=== PATIENT | female | born 2005 ===

== ENCOUNTER 2024-12-09 18:22 | Inpatient (IN) | payer MEDICAID, SELFPAY ==
[2024-12-09 18:27] VITALS: RESP 18; TEMP 37.2
[2024-12-09 18:43] VITALS: BMI 37.2
[2024-12-09 18:52] LABS: Basophils % (Auto) 0 % (0-2.5); Eosinophils # (Auto) 0.1 Thou/mm3 (0.0-0.5); Eosinophils % (Auto) 1 % (0-10); Hematocrit 34.9 % (36.0-46.0); Hemoglobin 12.4 g/dL (12.0-16.0); Immature Granulocytes % (Auto) 1 % (0-0); Immature Granulocytes Auto 0.05 Thou/mm3 (0.00-0.00); Lymphocytes # (Auto) 2.3 Thou/mm3 (1.0-4.8); Lymphocytes % (Auto) 21 % (10-50); Mean Corpuscular HGB Conc 35.5 g/dl (31.0-37.0); Mean Corpuscular Hemoglobin 30.8 pg (25.0-35.0); Mean Corpuscular Volume 87 fL (80-100); Monocytes # (Auto) 0.7 Thou/mm3 (0.0-0.8); Monocytes % (Auto) 6 % (0-12); Neutrophils # (Auto) 7.4 Thou/mm3 (1.8-7.7); Neutrophils % (Auto) 70 % (37-80); Nucleated Red Blood Cell % 0 /100 WBC (0); Platelet Count 209 Thou/mm3 (140-440); RDW Standard Deviation 41.3 fL (36.4-46.3); Red Blood Count 4.02 Miln/mm3 (4.00-5.20); White Blood Count 10.5 Thou/mm3 (3.6-11.0)
[2024-12-09 19:31] LABS: Syphilis Nonreactive (Nonreactive)
--- NOTE | 2024-12-09 19:31 | XR_ITS ---
Examination: Complete OB ultrasound greater than 14 weeks Date and time of exam: December 09, 2024 1940 hrs. Indications: Labor induction today, unknown weight Findings: Viable intrauterine single fetus with single amniotic sac presentation cephalic Cardiac motion 137 BPM Placenta posterior grade 3 Umbilical cord insertion 3 vessel seen Amniotic fluid index 15 cm spine maternal left Cervix 3.2 cm Ovaries obscured by bowel gas. Composite estimated gestational age based on BPD, head circumference, abdominal circumference, femur length is 40 weeks 1 day Estimated weight 3985 g Survey of intracranial anatomy, spinal anatomy, abdominal anatomy, four-chamber heart performed with no abnormalities identified. Impression: Viable intrauterine gestation cephalic presentation Estimated weight 3985 g.
[2024-12-09 21:18] VITALS: BP 124/79; PULSE 59
--- NOTE | 2024-12-09 21:23 | ESHP_ITS ---
Documentation for date of: 12/09/24 OB Labor/Induct. HPI History of Present Illness Chief complaint: induction for macrosomia : 1 Para: 0 Term pregnancies: 0 pregnancies: 0 Living children: 0 History of Abortions: Spontaneous and Elective: 0 History of Vaginal deliveries: 0 History of sections: No History of : No Date of last menstrual period: 03/07/24 KENDALL: 12/13/24 Gestational Age (weeks): 39 Gestational Age (days): 3 Gestational age based on last menstrual period: 39 Indication for induction: other ( macrosomia) History of present illness: This is a 19-year-old 1 para 0 admit to labor and delivery for induction of labor. Patient has been followed at [facility] for care. Her first visit was 8 weeks 2 days. Patient has a history of irregular menses. Her last period was February 24 and that put her due December 01, 2024. First ultrasound was May 05 patient was 8 weeks doing this change her due date to December 13, 2024 patient had a history of abnormal 1 hour GTT and her 3-hour was normal. She gained 80 pounds with the . Her last ultrasound over a month ago with maternal- medicine showed the baby was growing in the 98th percentile so patient was scheduled for induction. Patient is O+, antibody screen negative, RPR nonreactive, rubella immune, hepatitis B negative, hep C negative, HIV negative, as I mentioned her 1 hour GTT was high and her 3-hour GTT normal. Her GBS was negative. NIPT and carrier screens were all negative. Patient denies social habits. Denies surgery. Denies chronic illness. History of Present Dating criteria: LMP confirmed by 1st trimester US Adequate Care: Yes Ultrasounds: normal 1st trimester US and normal mid trimester US Obstetrical complications: none Medical complications: none Labs Labs: Negative: Hepatitis B, HIV, Chlamydia, Gonorrhea and Group Beta Strep Review of Systems Review of Systems Systems Reviewed: All systems reviewed, normal except as documented Past Medical History Surgical History SURGICAL: Negative Section Meds Home Medications and Allergies Home Medications ?Medication ?Instructions ?Recorded ?Confirmed ?Type ferrous sulfate 325 mg (65 mg 325 mg PO QDAY 12/09/24 12/09/24 History iron) tablet (FeroSul) vits no.126-ferrous fum 1 tab PO QDAY 5 12/09/24 History 28 mg iron-folic acid 800 mcg tablet (Classic ) Allergies Allergy/AdvReac Type Severity Reaction Status Date / Time No Known Allergies Allergy Verified 12/09/24 18:53 OB Exam Physical Exam Vital signs: Temp Pulse Resp BP 98.9 F 59 L 18 124/79 12/09/24 18:27 12/09/24 21:18 12/09/24 18:27 12/09/24 21:18 Narrative: Alert and oriented. Normal heart rate and rhythm. Lungs are clear no wheezes. Gravid abdomen. Gynecoid pelvis. Estimated weight is 8 and half pounds. Vertex by ultrasound. AL of 15. heart rate is category 1 with accelerations and moderate variability and patient has mild irregular contractions that she does not feel. Exam was soft cervix is anterior. 60% effaced. 1-2. Bag water intact. -2 station Routine Cardiovascular Exam Cardiovascular: Present RRR Routine Abdominal Exam Abdominal: Present soft Detailed Labor and Delivery Exam Dilation (cm): 1-2 Effacement (%): 60 Cervix position: anterior station: -2 Consistency: soft Presentation: Vertex Cervical ripeness score: 5 Membranes: intact Baseline heart rate: 125 monitor accelerations: 15x15 monitor decelerations: None keno terminal operator variability: Moderate (11-25) Contraction frequency (min): irregular Contraction duration (sec): 30 Tachysystole: No Contraction intensity: Mild OB Results Labs 12/09/24 18:30 Labs: Short CBC 12/09/24 Range/Units 18:30 WBC 10.5 (3.6-11.0) Thou/mm3 Hgb 12.4 (12.0-16.0) g/dL Hct 34.9 L (36.0-46.0) % Plt Count 209 (140-440) Thou/mm3 OB Assessment & Plan Assessment and Plan (1) Encounter for induction of labor: Status: Acute (2) Normal labor and delivery: Status: Acute Additional Plan Induction method: per misoprostol protocol Plan: induction, augmentation, anticipate NVD and consult MD velazquez
[2024-12-09] MEDS: MISOPROSTOL 50 mCg TABLET PO (21:52)
[2024-12-09 23:33] VITALS: BP 123/77; PULSE 57; TEMP 36.6
[2024-12-09 23:49] VITALS: PULSE 59; O2SAT 98
[2024-12-09 23:54] VITALS: PULSE 57; O2SAT 99
[2024-12-09 23:59] VITALS: PULSE 64; O2SAT 99
[2024-12-10] VITALS (71 sets, daily range): BP systolic 0–213; BP diastolic 0–95; PULSE 52–114; RESP 16–18; TEMP 36.7–37.3; O2SAT 91–100
[2024-12-10] MEDS: RINGERS LACTATED 1000 ML 1,000 ML 100 ML IV ×3 (01:48→13:38)
[2024-12-10] MEDS: MISOPROSTOL 50 mCg TABLET PO (02:13)
--- NOTE | 2024-12-10 08:45 | PD.LDPN ---
Documentation for date of: 12/10/24 OB Labor Progress Note Pain Control Pain control: tolerating well Pelvic Exam Dilation (cm): 4 Effacement (%): 80/post/soft station: -2 Amniotic membrane status: Bulging Contractions Monitor mode: External Contraction frequency: irregular Contraction phase: Resting Contraction intensity: Mild Status status: Category l Assessment and Plan Assessment: induction ongoing Plan OB labor note: begin Pitocin augmentation CNM Management MD Consulted (describe details below): Yes
[2024-12-10] MEDS: OXYTOCIN in NS 30 units 30 UNIT/500 ML BAG IV (09:23)
[2024-12-10 10:27] LABS: Amphetamine/Metham Scrn,Ur OB Negative (Negative); Benzoylecgonine Screen, Ur OB Negative (Negative); Opiate Screen,Urine OB Negative (Negative); THC Screen,Urine OB Negative (Negative)
[2024-12-10] MEDS: fentaNYL CIT INJ 50 mCg/ML AMP 2ML 100 MCG IV ×2 (11:09→12:45)
--- NOTE | 2024-12-10 14:26 | PD.LDPN ---
Documentation for date of: 12/10/24 OB Labor Progress Note Pelvic Exam Dilation (cm): C Effacement (%): C station: +2 Amniotic membrane status: Bulging Contractions Monitor mode: Internal Contraction frequency: q3min Contraction phase: Resting Contraction intensity: Strong Status status: Category l Assessment and Plan Comments: Called by RN to assess patient for recurrent FHR decels to 80's/90's with pushing efforts. I came immediately to bedside and assessed patient. IRENE Rivas present, pushing with patient. SCE C/C/+2, OA presentation. Continued FHR decels with every push, but moderate variability maintained. I had patient push with IRENE Rivas and I performed Ritgen maneuver, but fetus not yet descended far enough for it to be helpful. I donned new gloves. Patient pushing well, but would still be a while given size, so I called for vacuum. NICU nursing team already present. Bladder recently drained. I injected 1cc of 1% lidocaine into the midline of perineum and then cut a small midline episiotomy. Mighty Vac Soft Kyle Cup Vacuum device applied to flexion point of head. Maternal tissue excluded. With next patient pushing effort, vacuum device was pumped up to the green pressure zone. 1 pop-off, 2 pulls, total duration of instrument application 3 minutes. Once head was fully , IRENE Rivas took over the rest of the delivery. There was NO shoulder dystocia. had immediate spontaneous cry and was vigorous, apgars pending. No OASIS. Please see IRENE Rivas's note for futher details. Susana Paige MD
[2024-12-10] MEDS: OXYTOCIN in NS 20 units 20 UNIT/1,000 ML BAG 125 UNIT IV (14:29)
[2024-12-10] MEDS: OXYTOCIN INJ 10 UNIT/ML VIAL IM (14:30)
[2024-12-10] MEDS: MISOPROSTOL 200 mCg TABLET 800 MCG PR (14:30)
[2024-12-10] MEDS: MINERAL OIL 30 ML UDC TOP (14:42)
[2024-12-10] MEDS: BENZO/LANO/ALOE (Dermoplast) 60 GM CAN 1 SPRAY TOP (14:42)
[2024-12-10] MEDS: LIDOCAINE HCL 1% 20 ML VIAL INFL (14:44)
[2024-12-10] MEDS: IBUPROFEN TAB 400 MG TABLET 800 MG PO ×2 (14:44→23:13)
[2024-12-10] MEDS: TRANEXAMIC ACID 1,000 MG IVPB 1,000 MG/100 ML BAG 200 MG IV ×2 (15:04→16:40)
--- NOTE | 2024-12-10 15:19 | PD.LDDELS ---
Data (Bear) Data Hx Section: No : 1 Para: 0 Term: 0 : 0 : 0 Delivery Data (Bear) Labor Data Stimulated/Augmented: Yes Induction: Yes Method: Cytotec (pitocin to follow) ROM Date: 12/10/24 ROM Time: 13:23 Rupture Type: AROM Amniotic Fluid: Thin Meconium Delivery Data EDC: 12/13/24 EDC calculated by:: LMP/early US confirmation Labor Onset Stage 1 Date: 12/10/24 Labor Onset Stage 1 Time: 11:09 Labor Onset Stage 2 Date: 12/10/24 Labor Onset Stage 2 Time: 13:53 Delivery Date: 12/10/24 Delivery Time: 14:23 Gestational age (weeks): 39 Gestational age (days): 3 Placenta Delivery Date: 12/10/24 Placenta Delivery Time: 14:30 Delivered by: Rossana Rivas Delivery nurse: Doreen Dickerson Weight Reduction Specialist at delivery: Yes Support person(s) at delivery: father of baby Other staff at delivery: 2nd Nurse Other staff at delivery: 2nd Nurse Other staff at delivery: 2nd Nurse Other staff at delivery: Weight Reduction Specialist Other staff at delivery: Jazmine Licona Other staff at delivery: Mary Begum Other staff at delivery: [email or web address] Other staff at delivery: gheom Delivery Method Delivery: Vaginal Delivery Type: Vacuum Assisted Presentation: Vertex Position: CECILIA Anesthesia Type Primary Anesthesia: Local Delivery Room Medications Intrapartum Medications: Narcotics and Tocolytics Other Intrapartum Medications: No Post Delivery Medications: Antibiotics, Tocolytics and Cytotec Post Delivery Medications N/A: No Placenta Placenta Delivery: Spontaneous (placenta inspected, complete) Placenta Cultures Obtained: No Placenta Sent for Examination: No Cord Sample: Cord Blood Obtained Episiotomy Episiotomy: Midline (no lacerations) Perineal repair Sutures used for repair: 3.0 Vicryl (20 vicryl) EBL Estimated blood loss (ml): 450 Umbilical Cord Umbilical Vessels: 3 Nuchal Cord: x1 Body Cord: x1 Additional Procedures fhr in the 90 with pushing and slow recovery, pushing with encouragement, called Dr Paige to evaluate for vaccuum assist. applied x2, head delivered over MLE, baby delivered spontaneous by Clay Rivas cnm Blanch Data (Bear) Blanch Data Infant Gender: Male Infant Weight Grams: 4055 1 Minute Total: 8 5 Minute Total: 9
[2024-12-10] MEDS: ceFAZolin/D5W 2 GM IV 2 GM/100 ML BAG IV ×2 (15:48→22:16)
[2024-12-10] MEDS: ACETAMINOPHEN 325 MG TABLET 650 MG PO ×2 (16:40→20:23)
[2024-12-10] MEDS: DOCUSATE SOD 100 MG CAPSULE PO (20:23)
[2024-12-10 23:28] LABS: Basophils % (Auto) 0 % (0-2.5); Eosinophils % (Auto) 0 % (0-10); Hematocrit 27.3 % (36.0-46.0); Hemoglobin 9.6 g/dL (12.0-16.0); Immature Granulocytes % (Auto) 1 % (0-0); Immature Granulocytes Auto 0.11 Thou/mm3 (0.00-0.00); Lymphocytes # (Auto) 1.4 Thou/mm3 (1.0-4.8); Lymphocytes % (Auto) 7 % (10-50); Mean Corpuscular HGB Conc 35.2 g/dl (31.0-37.0); Mean Corpuscular Volume 88 fL (80-100); Monocytes # (Auto) 1.4 Thou/mm3 (0.0-0.8); Monocytes % (Auto) 7 % (0-12); Neutrophils # (Auto) 16.3 Thou/mm3 (1.8-7.7); Neutrophils % (Auto) 85 % (37-80); Nucleated Red Blood Cell % 0 /100 WBC (0); Platelet Count 163 Thou/mm3 (140-440); RDW Standard Deviation 42.4 fL (36.4-46.3); White Blood Count 19.2 Thou/mm3 (3.6-11.0)
[2024-12-11] MEDS: ACETAMINOPHEN 325 MG TABLET 650 MG PO (00:11)
[2024-12-11 00:14] VITALS: BP 135/70; PULSE 76; RESP 18; TEMP 36.9; O2SAT 97
[2024-12-11] MEDS: ceFAZolin/D5W 2 GM IV 2 GM/100 ML BAG IV (03:51)
[2024-12-11 03:52] VITALS: BP 112/72; PULSE 79; RESP 18; TEMP 36.8; O2SAT 99
[2024-12-11 08:00] VITALS: BP 118/69; PULSE 78; RESP 17; TEMP 36.9; O2SAT 97
[2024-12-11] MEDS: DOCUSATE SOD 100 MG CAPSULE PO (08:23)
[2024-12-11] MEDS: IBUPROFEN TAB 400 MG TABLET 800 MG PO (08:23)
--- NOTE | 2024-12-11 10:36 | PC.SS ---
SS conducted bedside contact with the patient to address nursing referral.? SS discussed with patient the basis of the referral. SS discussed self and role. ?SS asked for permission to speak in front of timber setter.? Patient agreed.? SS received referral indicating patient was positive for during care.? Patient tox report was negative. NB negative.? Patient confirmed she used THC during to help with her emotions.? Patient resides at home with her timber setter, FOB. FOB is involved. FOB is [facility]. Patient had baby boy, Derrick, via natural . NB born yesterday. ?This is patient?s first child. Patient received care with superintendent pipelines, Rossana Rivas RN. Patient states she was consistent with care. Patient denies any history of drug or alcohol abuse. Patient denies any history of domestic violence or mental illness. Patient states she plans on combo of bottle feeding and breast feeding. Patient has access to a car seat. Patient is not yet aligned with WIC, SNAP or TANF. Patient has access to appropriate supplies and equipment. director of social services provided resources to include:? Parenting Network, Warm Line and community numbers.? ?FOB will provide transportation upon discharge. No further intervention required at this time. Robotics Software Engineer will be available to address any further concerns. SS updated bedside nurse.
[2024-12-11 11:00] VITALS: BP 122/71; PULSE 83; RESP 15; TEMP 36.9; O2SAT 97
--- NOTE | 2024-12-11 11:17 | PD.LDPPPRG ---
Subjective Subjective Interval history: No complaints of pain. No dizziness. Bonding and breast-feeding feeding. Patient is very happy about the of her baby and her experience Exam Vital Signs Temp Pulse Resp BP Pulse Ox O2 Del Method 98.2 F 79 18 112/72 99 Room Air 12/11/24 03:52 12/11/24 03:52 12/11/24 03:52 12/11/24 03:52 12/11/24 03:52 12/11/24 03:52 Narrative Exam Vital signs stable afebrile. Breasts are soft. Fundus firm below the umbilicus. Perineum intact no swelling. Small lochia. Uterus well involuted. No lower extremity swelling. Negative Homans' sign. 2+ DTRs. Breasts are soft. Constitutional Constitutional: no acute distress Routine Respiratory Exam Respiratory: Present chest non-tender, lungs clear, normal breath sounds and no resp distress Routine Cardiovascular Exam Cardiovascular: Present RRR Routine Abdominal Exam Abdominal: Present soft and normoactive bowel sounds Routine Psychiatric Exam Psychiatric: Present normal affect and normal thought process Objective Labs 12/10/24 22:56 Labs: Laboratory Results - last 24 hr 12/10/24 22:56 WBC 19.2 H D RBC 3.10 L Hgb 9.6 L D Hct 27.3 L MCV 88 MCH 31.0 MCHC 35.2 RDW Std Deviation 42.4 Plt Count 163 D Neut % (Auto) 85 H Lymph % (Auto) [address] [place] % (Auto) 7 Eos % (Auto) 0 Baso % (Auto) 0 Neut # (Auto) 16.3 H Lymph # (Auto) 1.4 [place] # (Auto) 1.4 H Eos # (Auto) 0.0 Baso # (Auto) 0.0 Immature Gran # (Auto) 0.11 H Absolute Nucleated RBC 0.00 Immature Gran % 1 H Nucleated RBC % 0 Assessment & Plan Problem List (1) Encounter for induction of labor: Status: Acute (2) Normal labor and delivery: Status: Acute Assessment Comment Assessment comment: 24 hour post Plan Comment Plan Comment: Discharge home with baby today. Continue vitamins and iron. Discussed Tylenol or ibuprofen as needed for discomfort. Discussed episiotomy care. Sitz bath's with Epsom salt twice daily. Discussed danger signs and symptoms and signs symptoms of infection. Discussed ER precautions and parameters. Increase fluids and rest. Return in 3 weeks visit Time Spent With Patient Time: Total time spent is greater than 50% in coordination of care (as documented) at patient's floor/unit and/or counseling patient:
--- NOTE | 2024-12-11 11:20 | ESDS_ITS ---
DS: Providers Provider Date of admission: 12/09/24 18:22 Primary care physician: Physician No Primary/Family Admitting Provider: Rossana Rivas CNM Attending Provider on Admission: Rossana Rivas CNM Consults: 12/10/24 15:39 Referral Routine Comment: Attending Provider on DC: Rossana Rivas CNM Discharging Provider: Rossana Rivas CNM DS: Diagnosis Problem List Completed Was Problem List Reviewed/Reconciled?: Yes Summary/Hosp Course Brief History: This is a 19-year-old 1 para 0 admit to labor and delivery for induction of labor. Patient has been followed at [facility] for care. Her first visit was 8 weeks 2 days. Patient has a history of irregular menses. Her last period was February 24 and that put her due December 01, 2024. First ultrasound was May 05 patient was 8 weeks doing this change her due date to December 13, 2024 patient had a history of abnormal 1 hour GTT and her 3-hour was normal. She gained 80 pounds with the . Her last ultrasound over a month ago with maternal- medicine showed the baby was growing in the 98th percentile so patient was scheduled for induction. Patient is O+, antibody screen negative, RPR nonreactive, rubella immune, hepatitis B negative, hep C negative, HIV negative, as I mentioned her 1 hour GTT was high and her 3-hour GTT normal. Her GBS was negative. NIPT and carrier screens were all negative. Patient denies social habits. Denies surgery. Denies chronic illness. Peripartum Data Delivery Method: Operative Vaginal Delivery Episiotomy Description: Midline Laceration Description: no complications: none Time Spent with Patient Time attestation: Total time spent providing and/or coordinating discharge services: Exam Vital Signs Temp Pulse Resp BP Pulse Ox O2 Del Method 98.2 F 79 18 112/72 99 Room Air 12/11/24 03:52 12/11/24 03:52 12/11/24 03:52 12/11/24 03:52 12/11/24 03:52 12/11/24 03:52 Discharge Plan Plan Patient Disposition: HOME (Self Care) Patient condition on transfer: Stable Prescriptions/Referrals Prescriptions/Med Rec: No Action albuterol sulfate 90 mcg/actuation aerosol powdr breath activated 2 inh inhalation Q6H PRN (Reason: shortness of breath) Qty: 1 0RF ferrous sulfate [FeroSul] 325 mg (65 mg iron) tablet 325 mg PO QDAY Patient Comments: take 1 tablet by mouth twice a day Classic 28 mg iron- 800 mcg tablet 1 tab PO QDAY Patient Comments: take 1 tablet by mouth once daily promethazine 25 mg tablet 25 mg PO TID PRN (Reason: nausea and vomiting) Qty: 30 0RF Rx Instructions: Do not drive while taking Referrals: No Primary/Family,Physician [Primary Care Provider] - Patient/Caregiver Discharge Instructions Meds to Beds: No Discharge Activity: resume usual activities Print Language: Setswana Activity Restrictions/Additional Instructions: Discharge home with baby today. Continue vitamins and iron. Discussed Tylenol or ibuprofen for pain as needed. Discussed episiotomy care. Sitz bath's twice daily with Epsom salt. Increase fluids and rest. Discussed danger signs and signs symptoms of infection. Discussed ER precautions parameters. Return in 3 weeks visit Stand Alone Forms: Rosario Award Info., Patient Portal Info Letter Discharge Order Discharge Orders: Discharge (Routine); Ordered 12/11/24 Ordered By: Rossana Rivas Planned Discharge Date 12/11/24
== END 2024-12-11 16:35 | disposition home or self-care (01) | DRG 560 ==
LOC: S4SX 12-10 14:30 → S4NX 12-10 16:40
PROVIDERS: Admitting Provider Advanced Practice Midwife; Visit Provider Advanced Practice Midwife
DX: O36.63X0 Maternal care for excessive fetal growth, third trimester, not applicable or unspecified (principal); Z37.0 Single live birth; Z3A.39 39 weeks gestation of pregnancy; O69.81X0 Labor and delivery complicated by cord around neck, without compression, not applicable or unspecified; O69.82X0 Labor and delivery complicated by other cord entanglement, without compression, not applicable or unspecified; O77.0 Labor and delivery complicated by meconium in amniotic fluid; O76 Abnormality in fetal heart rate and rhythm complicating labor and delivery
CPT/HCPCS: 36415; 59409; 76805; 80307; 85025; 86780; 86850; 86900; 86901; 94762; J0689; J2590; J3010; J3490; J7120; S0191; A9270

== ENCOUNTER 2024-12-24 09:50 | Outpatient (AMB) | payer MEDICAID, SELFPAY ==
--- NOTE | 2024-12-24 10:00 | GYNCLNT_ITS ---
Vital Signs 12/24/24 10:01 Weight 92.079 kg Weight Measurement Method Standing Scale BP 126/86 H Blood Pressure Source Automatic Cuff Blood Pressure Location Left Upper Arm Position Sitting Respiration 18 Pulse 70 Pulse Source Monitor Temp 96.8 F Temp Source Oral Pulse Oximetry (%) 97 Oxygen Delivery Method Room Air Allergies/Home Meds Allergies & Medications Allergies No Known Allergies Allergy (Verified 12/24/24 10:02) Medication Reconciliation albuterol sulfate 90 mcg/actuation breath activated powder inhaler 2 inh inhalation Q6H PRN shortness of breath #1 ea 06/05/21 [Rx Confirmed 12/24/24] promethazine 25 mg tablet 25 mg PO TID PRN nausea and vomiting #30 tabs 12/05/22 [Rx Confirmed 12/24/24] ferrous sulfate 325 mg (65 mg iron) tablet (FeroSul) 325 mg PO QDAY 12/09/24 [History Confirmed 12/24/24] vits no.126-ferrous fum 28 mg iron-folic acid 800 mcg tablet (Classic ) 1 tab PO QDAY 12/09/24 [History Confirmed 12/24/24] Intake Visit Data Collection New Patient or Established: Established Patient (seen at [facility] within 3 years) Reason for Visit:: post visit Seen by Clinical Staff ONLY (RN/MA): No Laboratory Immunologist Required: No Do You Feel Safe at Home: Yes Authorities Contacted: N/A PCP or OBGYN visit in last 3 months: No Hx Now: No Are you currently on any form of Control: No Pain Present Currently: No Pain Scale Used: Rene-Zelaya/Numerical Pain scale:: 0 Smoking Status Smoking Status: Never smoker Enhanced Environmental Operator history Enhanced Environmental Operator History Menstrual regularity: regular Flow: normal Monthly: Yes Currently sexually active: No Questionnaires Covid-19 Vaccine Questionnaire Has patient been vacinated for Covid-19 Have you been vacinated for Covid-19: Yes PHQ-9 PHQ-2 Over the last 2 weeks, how often have you been bothered by any of the following problems? 1. Little interest or pleasure in doing things: not at all 2. Feeling down, depressed, or hopeless: not at all Total score: 0 PHQ-9 3. Trouble falling or staying asleep, or sleeping too much: Not at all 4. Feeling tired or having little energy: Not at all 5. Poor appetite or overeating: Not at all 6. Feeling bad about yourself - or that you are a failure or have let yourself or your family down: Not at all 7. Trouble concentrating on things, such as reading the newspaper or watching television: Not at all 8. Moving or speaking so slowly that other people could have noticed? - Or the opposite - being so fidgety or restless that you have been moving around a lot more than usual: not at all 9. Thoughts that you would be better off or of hurting yourself in some way: Not at all Total score: 0 If you checked off any problems, how difficult have these problems made it for you to do your work, take care of things at home, or get along with other people?: not difficult at all Source: Developed by Drs. Asad Lagunas, Sera Romano, Mp Márquez and colleagues, with an educational godfrey from [employer]. Depression screen completed yes Social History Living Situation History Lives With: Family Housing: House Tobacco History Smoking Status: Never smoker Second Hand Smoke Exposure: No Alcohol History Alcohol Intake: Never Domestic Abuse History Do You Feel Safe at Home: Yes Past Medical History Past Medical History Have you ever been diagnosed with any of the following: Cardiology Problems Congestive Heart Failure: No Respiratory Problems Chronic Obstructive Pulmonary Disease (COPD): No Asthma: Yes (self) Genital/Urinary Problems Renal Disease: No Reproductive Problems Breast Cancer: Yes (maternal grandma) Pelvic Inflammatory Disease: No Endocrine Problems Diabetes Mellitus Type 1: Yes (maternal and paternal grandparents) Diabetes Mellitus Type 2: No Blood Problems Anemia: Yes (self) Other Problems Blood Transfusions: No Blood Transfusion Reaction: No Anesthesia Reactions: No MRSA: No Clostridium Difficile: No Cancer: Yes (maternal and paternal grandparents) History of Present Illness HPI Narrative 19-year-old 1 para 1 for 2-week visit. Patient had a vaginal delivery about 06/2025. A baby boy weighing 8 pounds 15. Patient is breast and bottlefeeding. Reports that she is happy, no signs of depression. Patient has good support system at home. Father the baby is involved very. Unsure of control method. Patient has not resumed sexual intercourse yet. No complaints today. No complaints of episiotomy pain. Patient was induced for history of macrosomia. Tobacco Smoking Status: Never smoker Review of Systems Review of Systems Systems Reviewed: All systems reviewed, normal except as documented Exam Narrative Physical exam: Perineum intact. No lesions. Midline episiotomy well-approximated. No swelling. No signs of infection. No lochia. Abdomen soft. Nontender. Uterus well involuted. Negative Homans' sign. 2+ DTRs General Limitations: no limitations General Appearance: alert, in no apparent distress, comfortable, cooperative, healthy appearing, well developed and well groomed Head Head exam: atraumatic, normocephalic and normal inspection Chest Chest inspection: Present normal inspection and symmetric chest wall rise Resp Respiratory exam: Present normal lung sounds bilaterally Card Cardiovascular exam: Present regular rate, normal rhythm and normal heart sounds Abdominal Abdominal exam: Present soft and normal bowel sounds Rectal Rectal exam: Present normal inspection External exam: Present normal external exam and lacerations (midline episiotomy, 2nd, well approximated, no s/s of infection) Speculum exam: Present normal speculum exam Extremities Extremities exam: Present normal inspection (2+DTR, no varices) and full ROM Psych Psychiatric exam: Present normal affect and normal mood Assessment & Plan Diagnosis / Problem List (1) Routine Follow-Up: (2) Breast feeding status of mother: Status: Acute (3) Encounter for visit: Status: Acute Plan Discussed latching and breast-feeding position. Increase fluids. Discussed frequent feeds. Continue vitamins. Continues sitz bath's with Epsom salt twice a day for episiotomy care. Increase physical activity and rest. Discussed danger signs and symptoms and ER precautions. Return in 4 weeks control Office Procedures OB Clinic LOC & Office Proc's Nursing/Assessment Patient Status: Established Patient OB Clinic Nursing Assessment: BP Monitoring, Medication Reconciliation, Update PMH in EMR and Vital Signs OB Clinic Coordination of Care: Consent,records obtained, informed consent, Education Simp Pt/Fam, Results/Orders obtained and Staff clarify orders Established Patient Charge Established Patient Point Assignment: 80 Established Patient Point Charge: EP Level 3 (80-115)
[2024-12-24 10:01] VITALS: BP 126/86; PULSE 70; RESP 18; TEMP 36; O2SAT 97
== END 2024-12-24 10:18 | disposition home or self-care (01) ==
LOC: HODSOBC 09:50
PROVIDERS: Supervising Provider Advanced Practice Midwife; Visit Provider Advanced Practice Midwife
DX: Z39.2 Encounter for routine postpartum follow-up (principal); Z39.1 Encounter for care and examination of lactating mother
CPT/HCPCS: 99213; G0463